=== PATIENT | female | born 1950 | race Caucasian/White ===

== ENCOUNTER 2017-10-31 16:39 | Emergency (ER) | payer BC ==
[~2017-10-31] VITALS: Ht 160 cm; Wt 77.1 kg
[~2017-10-31 16:39] MED LIST: AMIT25; ATOR10; BACL20 PO; BUPR150ER PO; Baclofen10 MG PO; Bupropion Xl150 MG PO; CHANTIX; CIPRSO LEFTEYE; COLCHICINE0.6 MG PO; CYCL10; CYCL10 PO; Carbidopa-Levo1 EACH PO; DIPH50 PO; Desyrel150 MG; ESTR.625; GABA100 PO; Gabapentin600 MG PO; HYDACE10B PO; HYDACE5; HYDACE5 PO; HYDMOR2 PO; HYDR1TAB94 PO; IBUHYD; INDO50 PO; KETO10; LEVCAR10 PO; LORA1 PO; MECL25 PO; MELA3 PO; NICO14TP TOP; Naprosyn500 MG PO; OMEP10ER PO; OMEP20ER PO; ONDA4 PO; ONDA4ODT MM; OXYACE5T; OXYACE5T PO; PANT40 PO; PRAM.5; PREG150; PREG150 PO; Prilosec Otc20 MG PO; RXONDA4ODT MM; RXPROM25 PO; SERT100 PO; SIMV10 PO; SIMV40 PO; Simvastatin20 MG PO; TRAZ100 PO; TRAZ50; TRAZ50 PO; Toviaz4 MG PO; Ultram50 MG PO; VITORIN; Valium5 MG PO; Zofran8 MG PO; [UNRECOGNIZED DRUG - OTHER]
[2017-10-31 18:22] LABS: BASOPHILS ABSOLUTE AUTO 0.04 K/mm3 (0.00-0.23); BASOPHILS PERCENT AUTO 1 % (0-2); EOSINOPHILS ABSOLUTE AUTO 0.11 K/mm3 (0.00-0.68); EOSINOPHILS PERCENT AUTO 2 % (0-6); Hematocrit 36.3 % (33.0-51.0); Hemoglobin 11.7 g/dL (11.5-16.0); IMMATURE GRAN ABSOLUTE AUTO 0.01 K/mm3 (0.00-0.10); IMMATURE GRAN PERCENT AUTO 0 % (0-1); LYMPHOCYTES ABSOLUTE AUTO 2.25 K/mm3 (0.84-5.20); LYMPHOCYTES PERCENT AUTO 31 % (21-46); MONOCYTES ABSOLUTE AUTO 0.54 K/mm3 (0.16-1.47); MONOCYTES PERCENT AUTO 7 % (4-13); Mean Corpuscular HGB 27.9 pg (26.0-34.0); Mean Corpuscular HGB Conc 32.2 g/dL (31.5-36.5); Mean Corpuscular Volume 86 fL (80-100); Mean Platelet Volume 10.6 fL (9.1-12.4); NEUTROPHILS PERCENT AUTO 59 % (41-73); Platelet Count 233 K/mm3 (150-400); RDW Coefficient Variation 13.1 % (11.7-14.2); RDW Standard Deviation 41.1 fL (35.1-46.3); White Blood Cell Count 7.25 K/mm3 (4.00-11.30)
[2017-10-31 18:41] LABS: Albumin, Blood 3.6 g/dL (3.4-5.0); Bilirubin, Total 0.3 mg/dL (0.1-1.0); Bun/Creatinine Ratio 23.5 (12.0-20.0); Calcium, Blood 8.9 mg/dL (8.5-10.1); Creatinine, Blood 1.02 mg/dL (0.40-1.00); Globulin, Blood 3.5 g/dL (2.2-4.0); Potassium, Blood 3.9 mmol/L (3.5-5.5); Total Protein, Blood 7.1 g/dL (6.4-8.2)
== END 2017-10-31 19:56 | disposition home or self-care (01) ==
LOC: ER 16:39
PROVIDERS: Emergency Medicine
DX: S39.011A Strain of muscle, fascia and tendon of abdomen, initial encounter (principal); X58.XXXA Exposure to other specified factors, initial encounter; Z88.8 Allergy status to other drugs, medicaments and biological substances; Z79.899 Other long term (current) drug therapy; K21.9 Gastro-esophageal reflux disease without esophagitis; Z87.891 Personal history of nicotine dependence
CPT/HCPCS: 36415; 80053; 81000; 83690; 85025; 99283

== ENCOUNTER → 2017-11-30 | Outpatient (CLI) | payer BC ==
[2017-11-30 16:11] LABS: Bun/Creatinine Ratio 14.2 (12.0-20.0); Creatinine, Blood 1.06 mg/dL (0.40-1.00); Potassium, Blood 3.8 mmol/L (3.5-5.5)
[2017-11-30 16:34] LABS: BASOPHILS ABSOLUTE AUTO 0.03 K/mm3 (0.00-0.23); BASOPHILS PERCENT AUTO 0 % (0-2); EOSINOPHILS ABSOLUTE AUTO 0.16 K/mm3 (0.00-0.68); EOSINOPHILS PERCENT AUTO 2 % (0-6); Hematocrit 38.5 % (33.0-51.0); Hemoglobin 12.6 g/dL (11.5-16.0); IMMATURE GRAN ABSOLUTE AUTO 0.02 K/mm3 (0.00-0.10); IMMATURE GRAN PERCENT AUTO 0 % (0-1); LYMPHOCYTES ABSOLUTE AUTO 1.75 K/mm3 (0.84-5.20); LYMPHOCYTES PERCENT AUTO 22 % (21-46); MONOCYTES ABSOLUTE AUTO 0.56 K/mm3 (0.16-1.47); MONOCYTES PERCENT AUTO 7 % (4-13); Mean Corpuscular HGB 28.3 pg (26.0-34.0); Mean Corpuscular HGB Conc 32.7 g/dL (31.5-36.5); Mean Corpuscular Volume 86 fL (80-100); Mean Platelet Volume 10.5 fL (9.1-12.4); NEUTROPHILS ABSOLUTE AUTO 5.31 K/mm3 (1.96-9.15); NEUTROPHILS PERCENT AUTO 68 % (41-73); Platelet Count 213 K/mm3 (150-400); RDW Standard Deviation 40.7 fL (35.1-46.3); Red Blood Cell Count 4.46 M/mm3 (3.80-5.20); White Blood Cell Count 7.83 K/mm3 (4.00-11.30)
== END ==
LOC: LAB EV 16:01 → LAB SHORT 16:01
PROVIDERS: Emergency Medicine
DX: R19.7 Diarrhea, unspecified (principal)
CPT/HCPCS: 80048; 85025

== ENCOUNTER 2018-06-11 19:41 | Emergency (ER) | payer BC ==
[~2018-06-11] VITALS: Ht 160 cm; Wt 69.0 kg
[2018-06-11 20:23] LABS: BASOPHILS ABSOLUTE AUTO 0.03 K/mm3 (0.00-0.23); BASOPHILS PERCENT AUTO 0 % (0-2); EOSINOPHILS PERCENT AUTO 1 % (0-6); Hematocrit 41.7 % (33.0-51.0); Hemoglobin 13.3 g/dL (11.5-16.0); IMMATURE GRAN ABSOLUTE AUTO 0.01 K/mm3 (0.00-0.10); IMMATURE GRAN PERCENT AUTO 0 % (0-1); LYMPHOCYTES ABSOLUTE AUTO 2.51 K/mm3 (0.84-5.20); LYMPHOCYTES PERCENT AUTO 36 % (21-46); MONOCYTES ABSOLUTE AUTO 0.49 K/mm3 (0.16-1.47); MONOCYTES PERCENT AUTO 7 % (4-13); Mean Corpuscular HGB Conc 31.9 g/dL (31.5-36.5); Mean Corpuscular Volume 88 fL (80-100); Mean Platelet Volume 10.5 fL (9.1-12.4); NEUTROPHILS ABSOLUTE AUTO 3.77 K/mm3 (1.96-9.15); NEUTROPHILS PERCENT AUTO 55 % (41-73); Platelet Count 278 K/mm3 (150-400); RDW Coefficient Variation 13.3 % (11.7-14.2); RDW Standard Deviation 43.1 fL (35.1-46.3); Red Blood Cell Count 4.75 M/mm3 (3.80-5.20); White Blood Cell Count 6.91 K/mm3 (4.00-11.30)
[2018-06-11 20:59] LABS: Albumin/Globulin Ratio 1.1 (0.8-1.8); Bilirubin, Total 0.4 mg/dL (0.1-1.0); Bun/Creatinine Ratio 15.1 (12.0-20.0); Calcium, Blood 8.9 mg/dL (8.5-10.1); Creatinine, Blood 1.06 mg/dL (0.40-1.00); Globulin, Blood 3.6 g/dL (2.2-4.0); Potassium, Blood 3.8 mmol/L (3.5-5.5); Total Protein, Blood 7.6 g/dL (6.4-8.2)
[2018-06-11] MEDS ORDERED: Neurontin 300300 MG PO (21:05)
[2018-06-11] MEDS ORDERED: HYDHCL25 PO (22:19)
== END 2018-06-11 23:09 | disposition home or self-care (01) ==
LOC: ER 19:41
PROVIDERS: Physician Assistant
DX: J02.9 Acute pharyngitis, unspecified (principal); F12.23 Cannabis dependence with withdrawal; Z87.891 Personal history of nicotine dependence
CPT/HCPCS: 36415; 80053; 85025; 96374; 99283-25; J1100; J1885

== ENCOUNTER 2018-06-17 09:01 | Emergency (ER) | payer BC ==
[~2018-06-17] VITALS: Ht 172.7 cm; Wt 81.7 kg
[~2018-06-17 09:01] MED LIST changes: +HYDHCL25 PO; +Neurontin 300300 MG PO
[2018-06-17] MEDS ORDERED: CARB150 (09:23)
[2018-06-17] MEDS ORDERED: TRAZ150T57 (09:23)
[2018-06-17] MEDS ORDERED: GABA600 PO (09:23)
[2018-06-17] MEDS ORDERED: BUSP15 PO (09:24)
[2018-06-17] MEDS ORDERED: MELO7.5 PO (09:24)
[2018-06-17 09:59] LABS: BASOPHILS ABSOLUTE AUTO 0.03 K/mm3 (0.00-0.23); BASOPHILS PERCENT AUTO 0 % (0-2); EOSINOPHILS ABSOLUTE AUTO 0.06 K/mm3 (0.00-0.68); EOSINOPHILS PERCENT AUTO 1 % (0-6); Hematocrit 41.8 % (33.0-51.0); Hemoglobin 13.2 g/dL (11.5-16.0); IMMATURE GRAN ABSOLUTE AUTO 0.04 K/mm3 (0.00-0.10); IMMATURE GRAN PERCENT AUTO 1 % (0-1); LYMPHOCYTES ABSOLUTE AUTO 1.86 K/mm3 (0.84-5.20); LYMPHOCYTES PERCENT AUTO 22 % (21-46); MONOCYTES ABSOLUTE AUTO 0.48 K/mm3 (0.16-1.47); MONOCYTES PERCENT AUTO 6 % (4-13); Mean Corpuscular HGB 28.5 pg (26.0-34.0); Mean Corpuscular HGB Conc 31.6 g/dL (31.5-36.5); Mean Corpuscular Volume 90 fL (80-100); Mean Platelet Volume 10.9 fL (9.1-12.4); NEUTROPHILS ABSOLUTE AUTO 6.05 K/mm3 (1.96-9.15); NEUTROPHILS PERCENT AUTO 71 % (41-73); Platelet Count 262 K/mm3 (150-400); RDW Coefficient Variation 13.2 % (11.7-14.2); RDW Standard Deviation 43.4 fL (35.1-46.3); Red Blood Cell Count 4.63 M/mm3 (3.80-5.20); White Blood Cell Count 8.52 K/mm3 (4.00-11.30)
[2018-06-17 10:27] LABS: Alanine Aminotransfer (ALT/SGP 12 U/L (12-78); Albumin, Blood 4.3 g/dL (3.4-5.0); Albumin/Globulin Ratio 1.2 (0.8-1.8); Alk Phos 112 U/L (50-136); Anion Gap 8 mmol/L (6-16); Aspartate Aminotrans (AST/SGOT 27 U/L (12-37); Bilirubin, Total 0.4 mg/dL (0.1-1.0); Blood Urea Nitrogen 21 mg/dL (8-24); Bun/Creatinine Ratio 25.4 (12.0-20.0); CO2, Blood 25 mmol/L (21-32); Calcium, Blood 9.4 mg/dL (8.5-10.1); Chloride, Blood 108 mmol/L (98-108); Creatinine, Blood 0.83 mg/dL (0.40-1.00); Globulin, Blood 3.5 g/dL (2.2-4.0); Glomerular Filtration Rate >60 (60-); Glucose, Blood 108 mg/dL (70-99); Potassium, Blood 4.2 mmol/L (3.5-5.5); Sodium, Blood 141 mmol/L (136-145); Total Protein, Blood 7.8 g/dL (6.4-8.2)
[2018-06-17 10:45] LABS: U Amphetamine Screen Not Detected; U Barbituate Screen Not Detected; U Benzodiazapine Screen Not Detected; U Buprenorphine Screen Not Detected; U Cannabinoids Screen Not Detected; U Cocaine Screen Not Detected; U Methadone Screen Not Detected; U Methamphetamine Screen Not Detected; U Opiates Screen Not Detected; U Oxycodone Screen Not Detected; U Phencyclidine Screen Not Detected; U Propoxyphene Screen Not Detected
== END 2018-06-17 12:20 | disposition home or self-care (01) ==
LOC: ER 09:01
PROVIDERS: Emergency Medicine; Physician Assistant
DX: T43.211A Poisoning by selective serotonin and norepinephrine reuptake inhibitors, accidental (unintentional), initial encounter (principal); R40.4 Transient alteration of awareness; Z88.8 Allergy status to other drugs, medicaments and biological substances; Z79.899 Other long term (current) drug therapy
CPT/HCPCS: 36415; 80053; 85025; 93005; 93010; 96374; 96375; 99284-25; G0480; J1200; J2060

== ENCOUNTER → 2018-11-22 | Outpatient (CLI) | payer BC ==
[~2018-11-22] MED LIST changes: +BUSP15 PO; +CARB150; +GABA600 PO; +MELO7.5 PO; +OMEPRAZOLE20 MG PO; +TRAZ150T57; +VARE1 PO
== END | disposition home or self-care (01) ==
LOC: LAB SHORT 08:45 → LAB 08:45
DX: R30.0 Dysuria (principal)
CPT/HCPCS: 87086

== ENCOUNTER 2018-11-25 08:54 | Day surgery (SDC) | payer BC ==
[~2018-11-25] VITALS: Ht 160 cm; Wt 70.1 kg
[~2018-11-25 08:54] MED LIST changes: -OMEPRAZOLE20 MG PO; -VARE1 PO
[2018-11-25] MEDS ORDERED: VARE1 PO (09:32)
== END 2018-11-25 10:32 | disposition home or self-care (01) ==
LOC: ORSCSDS 08:54
PROVIDERS: Anesthesiology
PROC: 3E0R33Z Introduction of Anti-inflammatory into Spinal Canal, Percutaneous Approach (ICD-10-PCS; principal; 2018-11-25 10:15)
DX: M96.1 Postlaminectomy syndrome, not elsewhere classified (principal); M54.16 Radiculopathy, lumbar region; E78.00 Pure hypercholesterolemia, unspecified; K21.9 Gastro-esophageal reflux disease without esophagitis; Z87.891 Personal history of nicotine dependence; F41.8 Other specified anxiety disorders; Z79.899 Other long term (current) drug therapy
CPT/HCPCS: J1040

== ENCOUNTER 2019-02-04 13:36 | Day surgery (SDC) | payer BC ==
[~2019-02-04 13:36] MED LIST changes: +VARE1 PO
[2019-02-04] MEDS ORDERED: OMEPRAZOLE20 MG PO (14:28)
== END 2019-02-04 15:07 | disposition home or self-care (01) ==
LOC: ORSCSDS 13:36
PROVIDERS: Anesthesiology
PROC: 3E0R33Z Introduction of Anti-inflammatory into Spinal Canal, Percutaneous Approach (ICD-10-PCS; principal; 2019-02-04 15:00)
DX: M54.16 Radiculopathy, lumbar region (principal); M96.1 Postlaminectomy syndrome, not elsewhere classified; E78.00 Pure hypercholesterolemia, unspecified; K21.9 Gastro-esophageal reflux disease without esophagitis; G20 Parkinson's disease; F41.8 Other specified anxiety disorders; Z79.899 Other long term (current) drug therapy
CPT/HCPCS: J1040

== ENCOUNTER 2019-05-21 08:37 | Day surgery (SDC) | payer BC ==
[~2019-05-21] VITALS: Ht 157.5 cm; Wt 70.3 kg
[~2019-05-21 08:37] MED LIST changes: +OMEPRAZOLE20 MG PO
== END 2019-05-21 10:17 | disposition home or self-care (01) ==
LOC: ORSCSDS 08:37
PROVIDERS: Anesthesiology
PROC: 3E0R33Z Introduction of Anti-inflammatory into Spinal Canal, Percutaneous Approach (ICD-10-PCS; principal; 2019-05-21 09:45)
DX: M96.1 Postlaminectomy syndrome, not elsewhere classified (principal); M54.16 Radiculopathy, lumbar region; K21.9 Gastro-esophageal reflux disease without esophagitis; E78.00 Pure hypercholesterolemia, unspecified; G20 Parkinson's disease; F41.8 Other specified anxiety disorders; F17.210 Nicotine dependence, cigarettes, uncomplicated; Z79.899 Other long term (current) drug therapy
CPT/HCPCS: J1040

== ENCOUNTER 2019-11-07 07:02 | Emergency (ER) | payer BC ==
[~2019-11-07] VITALS: Ht 157.5 cm; Wt 70.3 kg
[2019-11-07] MEDS ORDERED: OXYC10ER PO (07:57)
[2019-12-19] MEDS ORDERED: Baclofen20 MG PO (06:13)
[2019-12-19] MEDS ORDERED: REMERON30 MG PO (06:14)
[2019-12-19] MEDS ORDERED: CELEBREX200 MG PO (06:14)
== END 2019-11-07 08:15 | disposition home or self-care (01) ==
LOC: ER 07:02
DX: S93.402A Sprain of unspecified ligament of left ankle, initial encounter (principal); Z88.7 Allergy status to serum and vaccine; Z88.8 Allergy status to other drugs, medicaments and biological substances; Z79.899 Other long term (current) drug therapy; W19.XXXA Unspecified fall, initial encounter
CPT/HCPCS: 73610; 99283-25

== ENCOUNTER → 2019-11-27 | Outpatient (CLI) | payer BC ==
[~2019-11-27] MED LIST changes: +Baclofen20 MG PO; +CELEBREX200 MG PO; +OXYC10ER PO; +REMERON30 MG PO
[2019-11-27 14:28] LABS: Candida species (DNA Probe) Negative (NEGATIVE); G. vaginalis (DNA Probe) Positive (NEGATIVE); T. vaginalis (DNA Probe) Negative (NEGATIVE)
== END | disposition home or self-care (01) ==
LOC: LAB 09:37 → LAB SHORT 09:37
PROVIDERS: Nurse Practitioner
DX: N89.8 Other specified noninflammatory disorders of vagina (principal); R30.0 Dysuria
CPT/HCPCS: 87086; 87480; 87510; 87660

== ENCOUNTER 2020-07-05 13:59 | Emergency (ER) | payer BC ==
[~2020-07-05] VITALS: Ht 160 cm; Wt 59.0 kg
[2020-07-05 14:40] LABS: BASOPHILS ABSOLUTE AUTO 0.04 K/mm3 (0.00-0.23); BASOPHILS PERCENT AUTO 1 % (0-2); EOSINOPHILS ABSOLUTE AUTO 0.13 K/mm3 (0.00-0.68); EOSINOPHILS PERCENT AUTO 2 % (0-6); Hematocrit 44.9 % (33.0-51.0); Hemoglobin 14.4 g/dL (11.5-16.0); IMMATURE GRAN ABSOLUTE AUTO 0.01 K/mm3 (0.00-0.10); IMMATURE GRAN PERCENT AUTO 0 % (0-1); LYMPHOCYTES ABSOLUTE AUTO 2.22 K/mm3 (0.84-5.20); LYMPHOCYTES PERCENT AUTO 30 % (21-46); MONOCYTES ABSOLUTE AUTO 0.53 K/mm3 (0.16-1.47); MONOCYTES PERCENT AUTO 7 % (4-13); Mean Corpuscular HGB 27.5 pg (26.0-34.0); Mean Corpuscular HGB Conc 32.1 g/dL (31.5-36.5); Mean Corpuscular Volume 86 fL (80-100); Mean Platelet Volume 10.9 fL (9.1-12.4); NEUTROPHILS ABSOLUTE AUTO 4.45 K/mm3 (1.96-9.15); NEUTROPHILS PERCENT AUTO 60 % (41-73); Platelet Count 267 K/mm3 (150-400); RDW Coefficient Variation 13.6 % (11.7-14.2); Red Blood Cell Count 5.23 M/mm3 (3.80-5.20); White Blood Cell Count 7.38 K/mm3 (4.00-11.30)
[2020-07-05 15:07] LABS: Alanine Aminotransfer (ALT/SGP 20 U/L (12-78); Albumin, Blood 3.8 g/dL (3.4-5.0); Alk Phos 102 U/L (50-136); Anion Gap 7 mmol/L (6-16); Aspartate Aminotrans (AST/SGOT 12 U/L (12-37); Bilirubin, Total 0.4 mg/dL (0.1-1.0); Blood Urea Nitrogen 19 mg/dL (8-24); Bun/Creatinine Ratio 16.4 (12.0-20.0); CO2, Blood 25 mmol/L (21-32); Chloride, Blood 109 mmol/L (98-108); Creatinine, Blood 1.16 mg/dL (0.40-1.00); Globulin, Blood 3.9 g/dL (2.2-4.0); Glomerular Filtration Rate 49 (60-); Glucose, Blood 119 mg/dL (70-99); Potassium, Blood 4.5 mmol/L (3.5-5.5); Sodium, Blood 141 mmol/L (136-145); Total Protein, Blood 7.7 g/dL (6.4-8.2); Troponin I <0.015 ng/mL (0.000-0.040)
== END 2020-07-05 16:10 | disposition left against medical advice (07) ==
LOC: ER 13:59
PROVIDERS: Physician Assistant
DX: R07.9 Chest pain, unspecified (principal); R06.02 Shortness of breath; R05 Cough; Z53.21 Procedure and treatment not carried out due to patient leaving prior to being seen by health care provider
CPT/HCPCS: 36415; 71046; 80053; 84484; 85025; 86140; 93005; 93010; 99283-25

== ENCOUNTER 2021-09-22 08:04 | Day surgery (SDC) | payer BC ==
[~2021-09-22] VITALS: Ht 160 cm; Wt 82.1 kg
== END 2021-09-22 09:40 | disposition home or self-care (01) ==
LOC: ORSCSDS 08:04
PROVIDERS: Anesthesiology
PROC: 3E0R33Z Introduction of Anti-inflammatory into Spinal Canal, Percutaneous Approach (ICD-10-PCS; principal; 2021-09-22 09:15)
DX: M96.1 Postlaminectomy syndrome, not elsewhere classified (principal); J44.9 Chronic obstructive pulmonary disease, unspecified; I10 Essential (primary) hypertension; F32.A Depression, unspecified; J45.909 Unspecified asthma, uncomplicated; K21.9 Gastro-esophageal reflux disease without esophagitis; E66.9 Obesity, unspecified; Z68.32 Body mass index [BMI] 32.0-32.9, adult; F17.210 Nicotine dependence, cigarettes, uncomplicated; Z79.899 Other long term (current) drug therapy
CPT/HCPCS: J1040

== ENCOUNTER 2022-04-09 13:22 | Day surgery (SDC) | payer BC ==
[~2022-04-09] VITALS: Ht 157.5 cm; Wt 87.0 kg
[2022-04-09] MEDS ORDERED: BUDESONIDE1 MG/2 M1 (13:39)
== END 2022-04-09 14:03 | disposition home or self-care (01) ==
LOC: ORSCSDS 13:22
PROVIDERS: Anesthesiology
PROC: 3E0R33Z Introduction of Anti-inflammatory into Spinal Canal, Percutaneous Approach (ICD-10-PCS; principal; 2022-04-09 14:30)
DX: M96.1 Postlaminectomy syndrome, not elsewhere classified (principal); I10 Essential (primary) hypertension; E78.00 Pure hypercholesterolemia, unspecified; K21.9 Gastro-esophageal reflux disease without esophagitis; F32.A Depression, unspecified; Z79.51 Long term (current) use of inhaled steroids; Z79.899 Other long term (current) drug therapy
CPT/HCPCS: J1040

== ENCOUNTER 2022-12-16 08:46 | Emergency (ER) | payer BC ==
[~2022-12-16] VITALS: Ht 160 cm; Wt 88.5 kg
[~2022-12-16 08:46] MED LIST changes: +ASPI81CH PO; +ATOR40TA PO; +BUDESONIDE1 MG/2 M1; +CLOP75 PO; +DOXE150 PO; +LEVSOD25 PO; +LIDO700A20 TOP; +PRAM.5 PO; -TRAZ150T57; +TRAZ150T57 PO
[2022-12-16 09:10] VITALS: BP 137/74
[2022-12-16] MEDS ORDERED: Voltaren100 GM TOP (10:16)
== END 2022-12-16 10:26 | disposition home or self-care (01) ==
LOC: ER 08:46
DX: S80.02XA Contusion of left knee, initial encounter (principal); K21.9 Gastro-esophageal reflux disease without esophagitis; G20 Parkinson's disease; J44.9 Chronic obstructive pulmonary disease, unspecified; I10 Essential (primary) hypertension; F17.200 Nicotine dependence, unspecified, uncomplicated; Z88.8 Allergy status to other drugs, medicaments and biological substances; Z79.899 Other long term (current) drug therapy; Z79.82 Long term (current) use of aspirin; W18.30XA Fall on same level, unspecified, initial encounter
CPT/HCPCS: 73562-LT; 99283-25

== ENCOUNTER 2023-05-29 13:12 | Inpatient (IN) | payer MEDICARE, BC ==
[~2023-05-29] VITALS: Ht 157.5 cm; Wt 92.9 kg
[2023-05-29] VITALS (38 sets, daily range): BP systolic 68–149; BP diastolic 49–134
[~2023-05-29 13:12] MED LIST changes: +ALBU90OI INH; +BUME2 PO; +CEPH500 PO; +Doxycycline Mo100 M1 PO; +ESCI10 PO; +FLUTICASONE-SA1 EAC2 INH; +Flexeril10 MG PO; +GABA300 PO; +LEVOFLOXACIN250 MG PO; +MIRAPEX0.25 M2 PO; +POTCHL20ER PO; +VALA500 PO; +Voltaren100 GM TOP
[2023-05-29] MEDS ORDERED: Lactated Ringer's 1,000 ML IV SCH (13:35)
[2023-05-29] MEDS ORDERED: CeFAZolin Sodium 2,000 MG in NS 50 ML IV SCH (13:35)
[2023-05-29] MEDS ORDERED: Chlorhexidine Mouth Care 15 ML UDC MT SCH (13:35)
[2023-05-29] MEDS ORDERED: OxyCODONE HCL 10 MG TABCR PO SCH (13:35)
[2023-05-29] MEDS ORDERED: Acetaminophen 500 MG Tab PO SCH (13:35)
[2023-05-29] MEDS ORDERED: Vancomycin HCL 1,000 MG in NS 100 ML IV SCH (13:35)
[2023-05-29] MEDS ORDERED: Rocuronium Bromide 10 MG/ML 5ML Injection IV ONE (15:16)
[2023-05-29] MEDS ORDERED: Ondansetron 4 MG TAB PO PRN (15:50)
[2023-05-29] MEDS ORDERED: Ondansetron HCl 2 MG / ML 2ML Vial IV PRN (15:50)
[2023-05-29] MEDS ORDERED: Naloxone HCl 0.4MG / ML 1ML Vial IV PRN ×2 (15:50→20:25)
[2023-05-29] MEDS ORDERED: Metoclopramide HCl 10 MG Tab PO PRN (15:55)
[2023-05-29] MEDS ORDERED: FLU VACC QS2023-24(6MOS UP)/PF 60 MCG/0.5 ML SYRINGE IM SCH (15:55)
[2023-05-29] MEDS ORDERED: Magnesium Hydroxide Conc 10 ML UDC PO PRN (15:55)
[2023-05-29] MEDS ORDERED: HYDROmorphone HCl/Pf 1MG SYR IV PRN (15:55)
[2023-05-29] MEDS ORDERED: OxyCODONE HCL 5 MG TAB PO PRN (15:55)
[2023-05-29] MEDS ORDERED: Bisacodyl 10 MG Supp PR PRN (16:00)
[2023-05-29] MEDS ORDERED: Acetaminophen 325 MG TABLET PO PRN (16:00)
[2023-05-29] MEDS ORDERED: Bupivacaine 0.5% HCl 5 MG/ML 30MLVIAL ONE (16:01)
[2023-05-29] MEDS ORDERED: Bumetanide 1 MG Tab PO PRN (16:05)
[2023-05-29] MEDS ORDERED: Ketorolac Tromethamine 15mg Vial IV PRN (16:10)
[2023-05-29] MEDS ORDERED: Cyclobenzaprine HCl 10 MG Tab PO PRN (16:10)
[2023-05-29] MEDS ORDERED: Ipratropium/Albuterol SulF 2.5-0.5MG/3 ML Amp INH ONE (16:15)
[2023-05-29] MEDS ORDERED: Mometasone/Formoterol MDI 200/5 mcg 13 GM INH SCH (16:20)
[2023-05-29] MEDS ORDERED: propofoL 20 ML IV ONE (16:20)
[2023-05-29] MEDS ORDERED: Albuterol HFA200 ACT/6.7 GM INH INH PRN (16:20)
[2023-05-29] MEDS ORDERED: FentaNYL Citrate 50 MCG/ML 2 ML Injection ONE (16:20)
[2023-05-29] MEDS ORDERED: Midazolam HCl 1MG / ML 2ML Vial ONE (16:20)
[2023-05-29] MEDS ORDERED: Omeprazole 20 MG CapCR PO SCH (16:30)
--- NOTE | 2023-05-29 16:31 | NUR ---
PRE-OP NOTE PT A&OX4, BREATHING RA, PAIN TO R HAND. PT USES WALKER AND HAS AN UNSTEADY GAIT AT BASELINE. GLASSES SENT TO PACU FOR POST OP. Patient confirms NPO status and agrees with scheduled surgery. Pre-Op teaching done. Pt verbalizes understanding.PT BELONGINGS STOWED BENEATH STRETCHER.
[2023-05-29] MEDS ORDERED: Potassium Chloride 20 MEQ TabCR PO SCH (17:00)
[2023-05-29] MEDS ORDERED: NS KCl 20mEq 1,000 ML IV SCH (17:00)
[2023-05-29] MEDS ORDERED: Metoclopramide HCl 5MG / ML 2ML Vial ONE (17:20)
--- NOTE | 2023-05-29 17:35 | NUR ---
PT HAS RLS AND IS MOVING ALL OVER THE PLACE C/O LEG PAIN BUT DENIES RT HAND PAIN, PT FALLS ASLEEP ON AND OFF AND WHEN PT IS SLEEP PT SATS DROP T0 82% ON 3L O2 NC NON REBREATHER ON AT 15L O2 SATS AT 95% BP STABLE
[2023-05-29] MEDS ORDERED: Piperacillin/Tazobactam Sod 3.375 GM in NS 50 ML IV SCH (18:00)
[2023-05-29] MEDS ORDERED: HYDROmorphone HCl/Pf 1MG SYR ONE (18:04)
[2023-05-29] MEDS ORDERED: Naloxone HCl 0.4MG / ML 1ML Vial ONE ×2 (19:13→20:04)
--- NOTE | 2023-05-29 19:49 | NUR ---
PT ARRIVED TO ROOM 224 FROM PACU. SATS 73% ON 4LO2. DURING BEDSIDE REP PT LETHARGIC, SLOW TO RESPOND W/STERNAL RUB. 13L NRB PLACED, 0.4MG NARCAN GIVEN, NO SIG IMPROVMENT NOTED. RT AND DYNAMIC BALANCER SET UP WORKER NOTIFIED, PT TX TO ICU 6 W/ICU DIGITAL MANAGER ASSIST. DR KELLOGG NOTIFIED, HOSPITALIST CONSULT OBTAINED. DAUGHTER NOTFIED, STATES SHE WILL UPDATE PT'S .
[2023-05-29] MEDS ORDERED: Naloxone HCl 0.4MG / ML 1ML Vial IV ONE (20:05)
--- NOTE | 2023-05-29 20:07 | NUR ---
PACU REPORT/HYPOXIA: REPORT RECEIVED FROM DANNA LIBRARIAN. PT TO UNIT AT ABOUT 1915. UPON ASSESSMENT PT IS SLEEPING, AND HARD TO WAKE. VS TAKEN AND SPO2 WAS 74% ON 4L. PT HOB RAISED AND PT PUT ON 13L NON-REBREATHER MASK. RT CALLED AND IN ROOM, ENROLLMENT PROCESSOR SHANTANU ALSO CALLED TO ROOM. PT RR 14 AND PT STILL HARD TO AROSE EVEN WITH STERNAL RUBBING, SPO2 INCREASED TO 96%. RADHA FOURNIER GAVE NARCAN. PT STILL LETHARGIC AFTER GIVEN NARCAN. RADHA SETHI AREA RELIEF PILOT NOTIFIED AND PT MOVED TO ROOM ICU6. THIS RN GAVE PRIMARY CARE PROVIDER BEDSIDE REPORT .PT NOTIFIED OF TRANSFER.
[2023-05-29] MEDS ORDERED: TraMADol HCl 50 MG Tab PO PRN (20:20)
--- NOTE | 2023-05-29 20:27 | NUR ---
INITIAL NOTE Report received at bedside for patient oversedated, received 1 dose narcan prior to arrival, arrived forgetful, obtunded slightly, sleepy, on NRB at 13L. Attempted to change to NC at 6L, desat, placed back on NRB. Continues to awaken to stimuli and able to be oriented x 4, but very drowsy and again sleep. Very restless legs also bothering when awake, but due to neuro status, holding all pain medications until able to sustain alertness/orientation. Spoke with surgeon earlier, plan discussed. Medications started, assessment performed, dressing to right arm c/d/i with good circulation distal/proximal to dressing. Call light in reach, requiring frequent reorientation.
[2023-05-29] MEDS ORDERED: Pramipexole DI-HCL 0.25 MG Tab PO SCH (21:00)
[2023-05-29] MEDS ORDERED: ValACYClovir HCL 500 MG Tab PO PRN (21:00)
[2023-05-29] MEDS ORDERED: Gabapentin 300 MG Cap PO SCH (21:00)
[2023-05-29] MEDS ORDERED: TraZODone HCl 100 MG Tab PO SCH (21:00)
[2023-05-29] MEDS ORDERED: Docusate Sodium 100 MG Cap PO SCH (21:00)
[2023-05-29] MEDS ORDERED: Naloxone HCl 1MG / ML 2ML SYR IV ONE (21:00)
[2023-05-29] MEDS ORDERED: Doxepin HCL 25 MG CAP PO SCH (21:00)
[2023-05-29] MEDS ORDERED: Doxepin HCL 50 MG CAP PO SCH (21:00)
[2023-05-29 21:18] LABS: BASOPHILS ABSOLUTE AUTO 0.02 K/mm3 (0.00-0.23); BASOPHILS PERCENT AUTO 0 % (0-2); EOSINOPHILS ABSOLUTE AUTO 0.03 K/mm3 (0.00-0.68); EOSINOPHILS PERCENT AUTO 0 % (0-6); Hematocrit 38.4 % (33.0-51.0); Hemoglobin 11.7 g/dL (11.5-16.0); IMMATURE GRAN ABSOLUTE AUTO 0.03 K/mm3 (0.00-0.10); IMMATURE GRAN PERCENT AUTO 0 % (0-1); LYMPHOCYTES ABSOLUTE AUTO 0.74 K/mm3 (0.84-5.20); LYMPHOCYTES PERCENT AUTO 7 % (21-46); MONOCYTES ABSOLUTE AUTO 0.19 K/mm3 (0.16-1.47); MONOCYTES PERCENT AUTO 2 % (4-13); Mean Corpuscular HGB 25.8 pg (26.0-34.0); Mean Corpuscular HGB Conc 30.5 g/dL (31.5-36.5); Mean Corpuscular Volume 85 fL (80-100); Mean Platelet Volume 11.2 fL (9.1-12.4); NEUTROPHILS ABSOLUTE AUTO 9.92 K/mm3 (1.96-9.15); NEUTROPHILS PERCENT AUTO 91 % (41-73); Platelet Count 223 K/mm3 (150-400); RDW Coefficient Variation 16.3 % (11.7-14.2); RDW Standard Deviation 50.6 fL (35.1-46.3); Red Blood Cell Count 4.54 M/mm3 (3.80-5.20); White Blood Cell Count 10.93 K/mm3 (4.00-11.30)
[2023-05-29 21:27] LABS: Base Excess Venous 3.4 mmol/L; pH Blood Venous 7.28 (7.34-7.37)
[2023-05-29 21:37] LABS: Albumin, Blood 2.8 g/dL (3.4-5.0); Albumin/Globulin Ratio 0.7 (0.8-1.8); Bilirubin, Total 0.2 mg/dL (0.1-1.0); Bun/Creatinine Ratio 25.8 (12.0-20.0); Calcium, Blood 8.4 mg/dL (8.5-10.1); Creatinine, Blood 1.32 mg/dL (0.40-1.00); Globulin, Blood 3.8 g/dL (2.2-4.0); Potassium, Blood 4.3 mmol/L (3.5-5.5); Total Protein, Blood 6.6 g/dL (6.4-8.2)
[2023-05-30] VITALS (33 sets, daily range): BP systolic 82–179; BP diastolic 56–101
[2023-05-30] MEDS ORDERED: CeFAZolin Sodium 2,000 MG in NS 50 ML IV SCH
[2023-05-30] MEDS ORDERED: Azithromycin 500 MG in NS 250 ML IV SCH
[2023-05-30 00:28] LABS: Influenza A, PCR NEGATIVE (NEGATIVE); Influenza B, PCR NEGATIVE (NEGATIVE); Resp Syncytial Virus, PCR NEGATIVE (NEGATIVE); SARS-Cov-2 (COVID-19) PCR, MMC NEGATIVE (NEGATIVE)
[2023-05-30 02:41] LABS: Base Excess Venous 4.5 mmol/L; Bicarbonate Venous 26.8 mmol/L (24.0-30.0); PCO2 Venous 65.1 mmHg (38-42); pH Blood Venous 7.29 (7.34-7.37)
[2023-05-30 02:45] LABS: BASOPHILS ABSOLUTE AUTO 0.01 K/mm3 (0.00-0.23); BASOPHILS PERCENT AUTO 0 % (0-2); EOSINOPHILS PERCENT AUTO 0 % (0-6); Hematocrit 39.6 % (33.0-51.0); Hemoglobin 12.1 g/dL (11.5-16.0); IMMATURE GRAN ABSOLUTE AUTO 0.02 K/mm3 (0.00-0.10); IMMATURE GRAN PERCENT AUTO 0 % (0-1); LYMPHOCYTES ABSOLUTE AUTO 0.63 K/mm3 (0.84-5.20); LYMPHOCYTES PERCENT AUTO 7 % (21-46); MONOCYTES ABSOLUTE AUTO 0.06 K/mm3 (0.16-1.47); MONOCYTES PERCENT AUTO 1 % (4-13); Mean Corpuscular HGB 25.9 pg (26.0-34.0); Mean Corpuscular HGB Conc 30.6 g/dL (31.5-36.5); Mean Corpuscular Volume 85 fL (80-100); Mean Platelet Volume 10.9 fL (9.1-12.4); NEUTROPHILS ABSOLUTE AUTO 8.47 K/mm3 (1.96-9.15); NEUTROPHILS PERCENT AUTO 92 % (41-73); Platelet Count 208 K/mm3 (150-400); RDW Coefficient Variation 16.3 % (11.7-14.2); RDW Standard Deviation 50.3 fL (35.1-46.3); Red Blood Cell Count 4.67 M/mm3 (3.80-5.20); White Blood Cell Count 9.19 K/mm3 (4.00-11.30)
[2023-05-30 03:00] LABS: Anion Gap Unable to Calculate mmol/L (6-16); Blood Urea Nitrogen 31 mg/dL (8-24); Bun/Creatinine Ratio 24.6 (12.0-20.0); CO2, Blood 32 mmol/L (21-32); Calcium, Blood 8.4 mg/dL (8.5-10.1); Chloride, Blood 110 mmol/L (98-108); Creatinine, Blood 1.26 mg/dL (0.40-1.00); Glomerular Filtration Rate 46 (60-); Glucose, Blood 168 mg/dL (70-99); Potassium, Blood 4.9 mmol/L (3.5-5.5); Sodium, Blood 141 mmol/L (136-145)
[2023-05-30 04:44] LABS: Base Excess Venous 5.5 mmol/L; PCO2 Venous 62.7 mmHg (38-42); pH Blood Venous 7.31 (7.34-7.37)
[2023-05-30] MEDS ORDERED: FentaNYL Citrate 50 MCG/ML 2 ML Injection IV PRN (05:40)
[2023-05-30] MEDS ORDERED: Levothyroxine Sodium 0.025 MG Tab PO SCH (06:00)
--- NOTE | 2023-05-30 06:19 | NUR ---
SHIFT SUMMARY Patient placed from NC back to NRB during shift and eventually to BiPAP, now on AVAPS. Tracked VBG earlier, recent pH 7.31, 62.7 CO2, 27 Bicarb. Remains intermittently forgetful about event, but knows she is in ICU and understands what happened, still not completely understanding reason for being in ICU, needing reminders. VS stable on monitor except some pauses overnight, longest was 1.4 seconds. BP mildly elevated, monitoring. Denied pain later, restless leg appeared to subside. Due to frequent drowsiness, held all PO meds and kept NPO on shift. Able to use bedpan to void. Uses call light appropriately. Nasal trumpet inserted earlier to assist gas exchange due to obstructive pattern (see also RT notes/VBGs).
--- NOTE | 2023-05-30 07:15 | NUR ---
Assumed care of pt at 0700. Bedside report received from Kieran RN and Karrie RN. Pt A&O x 4. Answers questions, follows commands. Pt anxious, talkative. Educated that speech is difficult to understand with BiPAP mask and oxygenation support is important at this time. Pt continues to speak against mask, stating that she would like something to eat and drink. Currently on BiPAP with AVAPS vT 500, EPAP 14, Rate 18, FiO2 30%. [place] type respiratory pattern with tidal volumes ranging from 100 mL to 600+ mL.
[2023-05-30] MEDS ORDERED: Albuterol 2.5 MG/3 ML VIAL INH SCH (08:10)
[2023-05-30] MEDS ORDERED: Albuterol 2.5 MG/3 ML VIAL INH PRN (08:10)
--- NOTE | 2023-05-30 08:17 | NUR ---
Anatoliy Jade and Magdiel in to see patient. Dr Jade removed surgical dressing, cleansed site and redressed while providing wound care instructions. Dr Veloz gave permission for pt to be removed from BiPAP and placed on NC. He would like pt to receive breathing treatment and have incentive spirometry. Placed on 2 LPM NC. SpO2 98%.
[2023-05-30] MEDS ORDERED: Gabapentin 300 MG Cap PO SCH ×2 (09:00→21:00)
[2023-05-30] MEDS ORDERED: Atorvastatin 40 MG Tab PO SCH (09:00)
[2023-05-30] MEDS ORDERED: Citalopram Hydrobromide 20 MG Tab PO SCH (09:00)
[2023-05-30] MEDS ORDERED: Vancomycin HCL 1,500 MG in NS 250 ML IV SCH (09:00)
[2023-05-30] MEDS ORDERED: Ipratropium/Albuterol SulF 2.5-0.5MG/3 ML Amp INH SCH (11:40)
[2023-05-30 13:53] LABS: Base Excess Venous 3.7 mmol/L; Bicarbonate Venous 27.8 mmol/L (24.0-30.0); PCO2 Venous 34.6 mmHg (38-42)
--- NOTE | 2023-05-30 15:37 | NUR ---
Dr Veloz in to see patient. Provider states pt is acceptable for surgical floor status without tele. Pt has been eating/drinking. Mobilizing around room with assistance. Using personal cell phone to update family. Assigned to room 208. Telephone report given to Nikkie GARCIA. Pt transferred via wheelchair with chart/belongings/meds, accompanied by her daughter and JIA Shields.
[2023-05-30] MEDS ORDERED: Piperacillin/Tazobactam Sod 3.375 GM in NS 50 ML IV SCH (16:00)
[2023-05-30] MEDS ORDERED: Enoxaparin 40 MG/0.4 ML SYR SC SCH (16:00)
--- NOTE | 2023-05-30 16:21 | NUR ---
PT ARRIVED TO UNIT AT APROX 1540 FROM ICU. PT SBA TO BED. PT DENIES PAIN AT TIME OF ARRIVAL. IV TO RAC DOES NOT FLUSH SO REMOVED. DRESSING TO R HAND CHANGED BY DR VILLASENOR THIS SHIFT, C/D/I. TO BE CHANGED DAILY, SEE WOUND CARE ORDERS. CONTINUE IV ABX, SALINE LOCKED BETWEEN IV ABX.
[2023-05-30] MEDS ORDERED: Calcium Carbonate 500 MG Tab Chew PO PRN (20:10)
[2023-05-30] MEDS ORDERED: Cyclobenzaprine HCl 10 MG Tab PO SCH (21:00)
[2023-05-30] MEDS ORDERED: TraZODone HCl 50 MG Tab PO SCH (21:00)
[2023-05-30] MEDS ORDERED: Pramipexole DI-HCL 0.25 MG Tab PO SCH (21:55)
--- NOTE | 2023-05-30 23:24 | NUR ---
NURSE DOCUMENTATION THIS RN WAS CALLED TO THE PT'S ROOM BY BIJAL FULTON AFTER THE CALL LIGHT WAS ACTIVATED BY THE PT'S SPOUSE, DORIAN, AT APPROX 2245. THIS RN FOUND THE PT ON THE FLOOR, APPARENTLY ATTEMPTING TO WALK TO THE BATHROOM ON HIS OWN POWER, WITHOUT ASSISTANCE OF STAFF OR THE WALKER HE HAS BEEN USING WHEN GETTING UP TO USE THE BATHROOM. THIS RN CALLED MOI GROVES INTO THE ROOM FROM THE HALLWAY AND WE ASSESSED THE PT WITH BIJAL'Gina FULTON AND DANITZA IN THE ROOM WELL. VITAL SIGNS WERE NORMAL ASIDE FROM THE PT'S BLOOD PRESSURE BEING ELEVATED. THE PT DID SUFFER A SKIN TEAR ON HIS RIGHT ELBOW AND THIS WAS COVERED WITH A MEPILEX ONCE THE PT WAS PLACED BACK INTO HIS BED BY STAFF. PT'S VITAL SIGNS HAVE BEEN STABLE SINCE THE FALL WITH THE PT'S BP COMING DOWN TIME EXTENDS PAST THE INCIDENT. PT AND PT'S SPOUSE EDUCATED ABOUT THE PT NOT GETTING UP FOR THE REMAINDER OF THE SHIFT D/T GENERALIZED WEAKNESS. ESTEPHANIA FISHMAN NOTIFIED AT 2310 ABOUT PT'S CONDITION POST FALL. PT STATED HIS ELBOW AND COCCYX WERE PAINFUL, BUT NO OTHER AREAS WERE SORE. PT ABLE TO MOVE ALL EXTREMITIES WITHOUT DIFFICULTY. NO IMAGING ORDERED AT THIS TIME. IF PT DOES COMPLAIN OF ANY PAIN, WILL CONSULT PROVIDER TO ORDER IMAGING ON AN NEEDED BASIS. PT COMPLAINS OF ANY NEW PAIN
[2023-05-31] MEDS ORDERED: NS 250 ML IV PRN (00:10)
[2023-05-31 03:16] VITALS: BP 147/73
--- NOTE | 2023-05-31 05:56 | NUR ---
SHIFT SUMMARY PT IS POD#2 S/P I&D OF HER RIGHT HAND INDEX FINGER. PT REQUESTED HER NIGHT TIME MEDS AND THIS RN CONTACTED THE PROVIDER TO GET THEM ORDERED. PT WAS ABLE TO AMBULATE TO THE BATHROOM SEVERAL TIMES THIS SHIFT WITHOUT INCIDENT. PT'S PAIN MEDICATED PER EMAR. VITAL SIGNS HAVE BEEN STABLE WITH NO ACUTE EVENTS OCCURRING OVERNIGHT. BED IS IN LOWEST POSITION, CALL LIGHT IS WITHIN REACH.
[2023-05-31] MEDS ORDERED: Omeprazole 20 MG CapCR PO SCH (06:30)
[2023-05-31 06:31] LABS: Albumin, Blood 2.6 g/dL (3.4-5.0); Albumin/Globulin Ratio 0.8 (0.8-1.8); Bilirubin, Total 0.2 mg/dL (0.1-1.0); Calcium, Blood 8.7 mg/dL (8.5-10.1); Creatinine, Blood 1.28 mg/dL (0.40-1.00); Globulin, Blood 3.4 g/dL (2.2-4.0)
[2023-05-31 07:06] VITALS: BP 149/85
[2023-05-31] MEDS ORDERED: Lactobacil 2-S.Thermo-Bifido 1 1 Cap PO SCH (09:00)
[2023-05-31] MEDS ORDERED: Polyethylene Glycol 3350 17 gm PO SCH (09:00)
[2023-05-31] MEDS ORDERED: Amoxicillin/Clavulanate K 875 MG Tab PO SCH (12:00)
[2023-05-31] MEDS ORDERED: Ampicillin Sod/Sulbactam Sod 3 GM in NS 100 ML IV SCH (12:00)
[2023-05-31] MEDS ORDERED: OxyCODONE HCL 5 MG TAB PO PRN ×2 (13:20→19:45)
[2023-05-31] MEDS ORDERED: Mag Hydrox/Al Hydrox/Simeth 18 ML,Lidocaine 2% Viscous Soln 9 ML,Atropine/Scopalam/Hyos... PO PRN (13:30)
[2023-05-31 14:26] VITALS: BP 146/69
--- NOTE | 2023-05-31 16:25 | NUR ---
SHIFT SUMMARY: PATIENT A/OX4, CALM, PLEASANT AND COOPERATIVE c CARE. PATIENT DENIES CP/PRESSURE, N/V AND SOB. PATIENT REPORTS EPIGASTRIC DISCOMFORT. PATIENT HAD 4 BROWN, FORMED BM THIS SHIFT. PATIENT REPORTS PAIN 6-9/10 TO R HAND, MEDICATED c PRN PAIN MEDS PER EMAR c GOOD EFFECT. PATIENT RECEIVED IV/PO ABX AND SCHEDULED MEDS PER EMAR THIS SHIFT. PATIENT HAS BEEN AMBULATING TO BATHROOM AND HALLWAY c ASSISTANCE T/O SHIFT AND TOLERATED WELL. PATIENT HAS NO IV ACCESS PER ORDER. VITAL SIGNS REVIEWED. BED ALARM ON FOR SAFETY. CALL LIGHT IN REACH.
--- NOTE | 2023-05-31 18:34 | NUR ---
ADDITIONAL NOTE: DR. TOBIAS (ORTHO) DID DRESSING CHANGED TO R HAND THIS AM.
[2023-05-31 19:48] VITALS: BP 156/86
[2023-05-31] MEDS ORDERED: Trimethoprim/Sulfamethoxazole DS Tab PO SCH (21:00)
[2023-06-01 02:21] VITALS: BP 129/63
[2023-06-01] MEDS ORDERED: Diabetic GuaiFENesin 100 MG/5 ML 5MLUDC PO PRN (03:55)
--- NOTE | 2023-06-01 04:49 | NUR ---
PROGRESS NOTE. LATE ENTRY. PT COMPLAINING OF SOB AND MUCUS, DISCUSSED PT'S SX WITH RT. RT RECOMMENDED MUCINEX. NEW ORDERS RECEIVED FROM HOSPITALIST FOR MUCINEX. CHECKED ON PT TO NOTIFY OF NEW ORDERS. PT SLEEPING WITH EYES CLOSED AND CALL LIGHT IN REACH.
[2023-06-01 07:11] VITALS: BP 128/52
--- NOTE | 2023-06-01 07:49 | NUR ---
SHIFT SUMMARY NOC. PT A/O X4. RIGHT HAND DRESSING C/D/I. PT MEDICATED FOR PAIN PER EMAR ORDERS. PT VERBALIZED RELIEF. PT AMBULATES TO THE BR, IS VOIDING URINE AND TOLERATING PO INTAKE. PT DID CALL FOR RT FOR SOB X2, PT REPORTED RELIEF AFTER TX. PT RESTED WITH EYES CLOSED AND CALL LIGHT IN REACH.
[2023-06-01 08:42] LABS: BASOPHILS ABSOLUTE AUTO 0.03 K/mm3 (0.00-0.23); BASOPHILS PERCENT AUTO 0 % (0-2); EOSINOPHILS ABSOLUTE AUTO 0.05 K/mm3 (0.00-0.68); EOSINOPHILS PERCENT AUTO 0 % (0-6); Hematocrit 36.4 % (33.0-51.0); Hemoglobin 11.4 g/dL (11.5-16.0); IMMATURE GRAN ABSOLUTE AUTO 0.02 K/mm3 (0.00-0.10); IMMATURE GRAN PERCENT AUTO 0 % (0-1); LYMPHOCYTES ABSOLUTE AUTO 2.06 K/mm3 (0.84-5.20); LYMPHOCYTES PERCENT AUTO 17 % (21-46); MONOCYTES ABSOLUTE AUTO 0.92 K/mm3 (0.16-1.47); MONOCYTES PERCENT AUTO 8 % (4-13); Mean Corpuscular HGB 26.1 pg (26.0-34.0); Mean Corpuscular HGB Conc 31.3 g/dL (31.5-36.5); Mean Corpuscular Volume 83 fL (80-100); NEUTROPHILS ABSOLUTE AUTO 8.77 K/mm3 (1.96-9.15); NEUTROPHILS PERCENT AUTO 74 % (41-73); Platelet Count 216 K/mm3 (150-400); RDW Coefficient Variation 16.5 % (11.7-14.2); RDW Standard Deviation 49.8 fL (35.1-46.3); Red Blood Cell Count 4.37 M/mm3 (3.80-5.20); White Blood Cell Count 11.85 K/mm3 (4.00-11.30)
[2023-06-01] MEDS ORDERED: SULTRIDS PO (11:35)
--- NOTE | 2023-06-01 12:00 | NUR ---
DISCHARGE SUMMARY PT A&OX4, VSS/RA, MARTHA PO, VOIDING, AMB IND FWW/REPOSITION SELF, PAIN TREATED WITH OXY 5-10 Q4P. DC INS PROVIDED. PT REP UNDERSTANDING THOSE INSTRUCTIONS. LEFT FLOOR VIA WC WITH BUS AIDE TO GO HOME WITH , WITH ALL PERSONAL POSSESSIONS, INCLUDING DC PACKET AND 1 NARC SCRIPT; OTHER SCRIPTS FAXED TO [facility].
== END 2023-06-01 12:00 | disposition home or self-care (01) | DRG 906 ==
LOC: ORD 13:12 → ORSCMMR 13:16 → SURS 18:53 → ORD 19:44 → ICUE 19:45 → SURS 05-30 09:57 → ICUE 05-30 09:58 → SURS 05-30 16:15
PROVIDERS: Internal Medicine; Student in an Organized Health Care Education/Training Program; ADMIT Orthopaedic Surgery
PROC: 5A09357 Assistance with Respiratory Ventilation, Less than 24 Consecutive Hours, Continuous Positive Airway Pressure (ICD-10-PCS; 2023-05-29)
PROC: 0LD70ZZ Extraction of Right Hand Tendon, Open Approach (ICD-10-PCS; principal; 2023-05-29 15:00)
DX: T40.2X1A Poisoning by other opioids, accidental (unintentional), initial encounter (principal); G92.8 Other toxic encephalopathy; J69.0 Pneumonitis due to inhalation of food and vomit; J96.01 Acute respiratory failure with hypoxia; J96.02 Acute respiratory failure with hypercapnia; A43.8 Other forms of nocardiosis; E66.2 Morbid (severe) obesity with alveolar hypoventilation; I50.32 Chronic diastolic (congestive) heart failure; I96 Gangrene, not elsewhere classified; M65.141 Other infective (teno)synovitis, right hand; J44.9 Chronic obstructive pulmonary disease, unspecified; K21.9 Gastro-esophageal reflux disease without esophagitis; E78.5 Hyperlipidemia, unspecified; G25.81 Restless legs syndrome; N18.31 Chronic kidney disease, stage 3a; Z11.52 Encounter for screening for COVID-19; Z88.8 Allergy status to other drugs, medicaments and biological substances; Z87.891 Personal history of nicotine dependence; Z68.35 Body mass index [BMI] 35.0-35.9, adult
CPT/HCPCS: 0241U; 36415; 71045; 80048; 80053; 82803; 82947; 83735; 83880; 84443; 85025; 85651; 86140; 87070; 87071; 87075; 87102; 87205; 87206; 93005; 93010; 94640; 94660; 94664; 94760; 94762; 97110; 97116; 97162; 97165; 97530; 97535; A9270; J0456; J0690; J1170; J1650; J1885; J2250; J2310; J2543; J2704; J2765; J3010; J3370; J3480; J7050; J7120

== ENCOUNTER → 2023-08-27 | Outpatient (CLI) | payer BC | END | disposition home or self-care (01) | LOC: LAB SHORT 19:53 → LAB 19:53 | DX: T81.44XA Sepsis following a procedure, initial encounter (principal); M65.141 Other infective (teno)synovitis, right hand ==

== ENCOUNTER 2023-10-27 15:17 | Emergency (ER) | payer BC ==
[~2023-10-27] VITALS: Ht 160 cm; Wt 83.0 kg
[~2023-10-27 15:17] MED LIST changes: +ACET325 PO; +ATOR10 PO; +AZIT250 PO; +DULERA 200 MCG-13 GM INH; +DULO60 PO; +DYAZIDE 37.5-21 EACH PO; +Desyrel150 MG PO; +FLUTICASONE-SAL12 G2 INH; +NAPR500EC PO; +OXYC5 PO; +PRAM.125 PO; +PROBIOTIC1 EA14 PO; +SULTRIDS; +SULTRIDS PO; +VALA500; +Zocor20 MG PO
[2023-10-27 15:26] VITALS: BP 127/60
[2023-10-27] MEDS ORDERED: Diphth,Pertuss(Acell),Tet Vac 0.5 ML VIAL IM ONE (15:40)
[2023-10-27] MEDS ORDERED: Ketorolac Tromethamine 10 MG Tab PO ONE (15:45)
== END 2023-10-27 17:56 | disposition home or self-care (01) ==
LOC: ER 15:17
DX: S81.812A Laceration without foreign body, left lower leg, initial encounter (principal); K21.9 Gastro-esophageal reflux disease without esophagitis; E78.5 Hyperlipidemia, unspecified; J44.9 Chronic obstructive pulmonary disease, unspecified; I12.9 Hypertensive chronic kidney disease with stage 1 through stage 4 chronic kidney disease, or unspecified chronic kidney disease; N18.30 Chronic kidney disease, stage 3 unspecified; F17.200 Nicotine dependence, unspecified, uncomplicated; W26.9XXA Contact with unspecified sharp object(s), initial encounter; Z79.899 Other long term (current) drug therapy; Z88.8 Allergy status to other drugs, medicaments and biological substances
CPT/HCPCS: 12002; 90471; 90715; 99282-25; A9270

== ENCOUNTER 2023-12-17 03:57 | Day surgery (SDC) | payer BC ==
[2023-12-17] MEDS ORDERED: Lidocaine HCl 4% Cream 5 GM ONE (11:02)
== END 2023-12-17 22:38 | disposition home or self-care (01) ==
LOC: WOUND 03:57
DX: L97.822 Non-pressure chronic ulcer of other part of left lower leg with fat layer exposed (principal); I87.2 Venous insufficiency (chronic) (peripheral); I73.9 Peripheral vascular disease, unspecified
CPT/HCPCS: A6213; A9270

== ENCOUNTER 2023-12-24 02:38 | Day surgery (SDC) | payer BC, OTHER | END 2023-12-24 22:36 | disposition home or self-care (01) | LOC: WOUND 02:38 | DX: L97.822 Non-pressure chronic ulcer of other part of left lower leg with fat layer exposed (principal); I87.2 Venous insufficiency (chronic) (peripheral); I73.9 Peripheral vascular disease, unspecified | CPT/HCPCS: A6213; G0463 ==

== ENCOUNTER 2024-01-21 03:13 | Day surgery (SDC) | payer BC ==
[2024-01-21] MEDS ORDERED: Lidocaine HCl 4% Cream 5 GM ONE (07:55)
== END 2024-01-21 23:00 | disposition home or self-care (01) ==
LOC: WOUND 03:13
DX: L97.822 Non-pressure chronic ulcer of other part of left lower leg with fat layer exposed (principal); I87.2 Venous insufficiency (chronic) (peripheral); I73.9 Peripheral vascular disease, unspecified
CPT/HCPCS: A6213; A9270

== ENCOUNTER 2024-01-28 02:06 | Day surgery (SDC) | payer BC | END 2024-01-28 23:02 | disposition home or self-care (01) | LOC: WOUND 02:06 | DX: L97.822 Non-pressure chronic ulcer of other part of left lower leg with fat layer exposed (principal); I87.2 Venous insufficiency (chronic) (peripheral); I73.9 Peripheral vascular disease, unspecified | CPT/HCPCS: A6213; G0463 ==

== ENCOUNTER 2024-02-20 03:02 | Day surgery (SDC) | payer BC ==
[2024-02-20] MEDS ORDERED: Lidocaine HCl 4% Cream 5 GM ONE (14:20)
== END 2024-02-20 23:10 | disposition home or self-care (01) ==
LOC: WOUND 03:02
DX: L97.822 Non-pressure chronic ulcer of other part of left lower leg with fat layer exposed (principal); I87.2 Venous insufficiency (chronic) (peripheral); I73.9 Peripheral vascular disease, unspecified
CPT/HCPCS: A9270

== ENCOUNTER 2024-02-27 03:34 | Day surgery (SDC) | payer BC ==
[2024-02-27] MEDS ORDERED: Lidocaine HCl 4% Cream 5 GM ONE (11:59)
== END 2024-02-27 23:00 | disposition home or self-care (01) ==
LOC: WOUND 03:34
DX: L97.822 Non-pressure chronic ulcer of other part of left lower leg with fat layer exposed (principal); I87.2 Venous insufficiency (chronic) (peripheral); I73.9 Peripheral vascular disease, unspecified; J44.9 Chronic obstructive pulmonary disease, unspecified
CPT/HCPCS: A9270

== ENCOUNTER 2024-03-05 03:09 | Day surgery (SDC) | payer BC ==
[2024-03-05] MEDS ORDERED: Lidocaine HCl 4% Cream 5 GM ONE (12:23)
== END 2024-03-05 23:00 | disposition home or self-care (01) ==
LOC: WOUND 03:09
DX: L97.822 Non-pressure chronic ulcer of other part of left lower leg with fat layer exposed (principal); I87.2 Venous insufficiency (chronic) (peripheral); I73.9 Peripheral vascular disease, unspecified; J44.9 Chronic obstructive pulmonary disease, unspecified
CPT/HCPCS: A9270

== ENCOUNTER 2024-03-12 04:27 | Day surgery (SDC) | payer BC | END 2024-03-12 23:23 | disposition home or self-care (01) | LOC: WOUND 04:27 | DX: L97.821 Non-pressure chronic ulcer of other part of left lower leg limited to breakdown of skin (principal); I87.2 Venous insufficiency (chronic) (peripheral); I73.9 Peripheral vascular disease, unspecified | CPT/HCPCS: G0463 ==

== ENCOUNTER 2024-04-06 04:33 | Emergency (ER) | payer BC ==
[~2024-04-06] VITALS: Ht 162.6 cm; Wt 86.2 kg
[2024-04-06] MEDS ORDERED: OxyCODONE HCL 5 MG TAB PO ONE (06:15)
[2024-04-06] MEDS ORDERED: IBUP600 PO (07:36)
[2024-04-06 07:52] VITALS: BP 132/56
== END 2024-04-06 07:54 | disposition home or self-care (01) ==
LOC: ER 04:33
DX: M25.511 Pain in right shoulder (principal); I12.9 Hypertensive chronic kidney disease with stage 1 through stage 4 chronic kidney disease, or unspecified chronic kidney disease; N18.30 Chronic kidney disease, stage 3 unspecified; K21.9 Gastro-esophageal reflux disease without esophagitis; E78.5 Hyperlipidemia, unspecified; J44.9 Chronic obstructive pulmonary disease, unspecified; F17.200 Nicotine dependence, unspecified, uncomplicated; Z88.8 Allergy status to other drugs, medicaments and biological substances; Z79.899 Other long term (current) drug therapy; Z79.890 Hormone replacement therapy
CPT/HCPCS: 99283; A9270

== ENCOUNTER 2024-05-04 11:15 | Day surgery (SDC) | payer BC ==
[~2024-05-04] VITALS: Ht 160 cm; Wt 88.8 kg
[~2024-05-04 11:15] MED LIST changes: +IBUP600 PO; +Lactated Ringer's 1,000 ML IV ONE; +Lidocaine 2% 5 ML SDV ONE; +Lidocaine 2%-Epineph 1:100000 20 ML MDV ONE
[2024-05-04] MEDS ORDERED: CeFAZolin Sodium 2,000 MG VIAL ONE (11:46)
[2024-05-04] MEDS ORDERED: Ipratropium/Albuterol SulF 2.5-0.5MG/3 ML Amp ONE (12:03)
[2024-05-04] MEDS ORDERED: CELE100 PO (12:14)
[2024-05-04] MEDS ORDERED: TIZANIDINE HCL213 PO (12:14)
[2024-05-04] MEDS ORDERED: Lactated Ringer's 1,000 ML IV ONE (12:24)
[2024-05-04] MEDS ORDERED: propofoL 20 ML IV ONE (12:44)
[2024-05-04] MEDS ORDERED: FentaNYL Citrate 50 MCG/ML 2 ML Injection ONE ×2 (12:54→13:44)
[2024-05-04] MEDS ORDERED: Dexamethasone Sod Phos 10 MG/ML 1ML VIAL ONE (13:15)
[2024-05-04] MEDS ORDERED: Ondansetron HCl 2 MG / ML 2ML Vial ONE (13:17)
[2024-05-04] MEDS ORDERED: Ketorolac Tromethamine 30mg Vial ONE (13:20)
[2024-05-04 14:20] VITALS: BP 128/53
--- NOTE | 2024-05-04 14:26 | NUR ---
05/04/24 1426 Debra Quinonez PT FROM OR ON 8 L O2 BY NRB, D/C'D AT 1345. SATS REMAINING ABOVE 95%
== END 2024-05-04 16:20 | disposition home or self-care (01) ==
LOC: ORSCSDS 11:15
PROVIDERS: Orthopaedic Surgery
PROC: 0RSW0ZZ Reposition Right Finger Phalangeal Joint, Open Approach (ICD-10-PCS; principal; 2024-05-04 13:45)
PROC: 0LN70ZZ Release Right Hand Tendon, Open Approach (ICD-10-PCS; principal; 2024-05-04 13:45)
DX: L91.0 Hypertrophic scar (principal); J44.89 Other specified chronic obstructive pulmonary disease; E03.9 Hypothyroidism, unspecified; K21.9 Gastro-esophageal reflux disease without esophagitis; Z79.899 Other long term (current) drug therapy
CPT/HCPCS: 82947; 87070; 87075; 87102; 87205; J0690; J1100; J1885; J2405; J2704; J3010; J7120

== ENCOUNTER 2024-05-17 19:58 | Emergency (ER) | payer BC ==
[~2024-05-17] VITALS: Ht 160 cm; Wt 88.5 kg
[~2024-05-17 19:58] MED LIST changes: +CELE100 PO; -Lactated Ringer's 1,000 ML IV ONE; -Lidocaine 2% 5 ML SDV ONE; -Lidocaine 2%-Epineph 1:100000 20 ML MDV ONE; +TIZANIDINE HCL213 PO
[2024-05-17 20:17] VITALS: BP 149/55
== END 2024-05-17 22:23 | disposition left against medical advice (07) ==
LOC: ER 19:58
DX: R22.43 Localized swelling, mass and lump, lower limb, bilateral (principal); Z53.21 Procedure and treatment not carried out due to patient leaving prior to being seen by health care provider
CPT/HCPCS: 99281

== ENCOUNTER 2024-06-28 04:29 | Emergency (ER) | payer BC ==
[~2024-06-28] VITALS: Ht 160 cm; Wt 83.9 kg
[2024-06-28] MEDS ORDERED: HYDROmorphone HCl/Pf 1MG SYR IV ONE ×2 (04:40→07:45)
[2024-06-28] MEDS ORDERED: Ketorolac Tromethamine 30mg Vial IV ONE (04:40)
[2024-06-28 04:52] LABS: BASOPHILS ABSOLUTE AUTO 0.03 K/mm3 (0.00-0.23); BASOPHILS PERCENT AUTO 0 % (0-2); EOSINOPHILS ABSOLUTE AUTO 0.17 K/mm3 (0.00-0.68); EOSINOPHILS PERCENT AUTO 1 % (0-6); IMMATURE GRAN ABSOLUTE AUTO 0.07 K/mm3 (0.00-0.10); IMMATURE GRAN PERCENT AUTO 1 % (0-1); LYMPHOCYTES ABSOLUTE AUTO 1.32 K/mm3 (0.84-5.20); LYMPHOCYTES PERCENT AUTO 10 % (21-46); MONOCYTES ABSOLUTE AUTO 0.82 K/mm3 (0.16-1.47); MONOCYTES PERCENT AUTO 6 % (4-13); Mean Corpuscular HGB Conc 32.1 g/dL (31.5-36.5); Mean Corpuscular Volume 84 fL (80-100); Mean Platelet Volume 9.7 fL (9.1-12.4); NEUTROPHILS ABSOLUTE AUTO 10.97 K/mm3 (1.96-9.15); NEUTROPHILS PERCENT AUTO 82 % (41-73); Platelet Count 447 K/mm3 (150-400); RDW Coefficient Variation 15.1 % (11.7-14.2); Red Blood Cell Count 3.33 M/mm3 (3.80-5.20); White Blood Cell Count 13.38 K/mm3 (4.00-11.30)
[2024-06-28 05:14] LABS: C-REACTIVE PROTEIN, EXT RANGE 17.2 mg/dL (0.000-0.300)
[2024-06-28 05:17] LABS: Albumin, Blood 2.3 g/dL (3.4-5.0); Albumin/Globulin Ratio 0.6 (0.8-1.8); Bilirubin, Total 0.4 mg/dL (0.1-1.0); Bun/Creatinine Ratio 19.3 (12.0-20.0); Calcium, Blood 8.8 mg/dL (8.5-10.1); Creatinine, Blood 0.99 mg/dL (0.40-1.00); Globulin, Blood 4.1 g/dL (2.2-4.0); Potassium, Blood 3.5 mmol/L (3.5-5.5); Total Protein, Blood 6.4 g/dL (6.4-8.2)
[2024-06-28] MEDS ORDERED: NS 1,000 ML IV SCH (05:30)
[2024-06-28] MEDS ORDERED: Ondansetron HCl 2 MG / ML 2ML Vial IV ONE (07:55)
[2024-06-28 08:30] VITALS: BP 134/68
[2024-06-28] MEDS ORDERED: Ondansetron 4 MG SoluTab SL ONE (08:30)
[2024-06-28] MEDS ORDERED: HYDR1TAB94 PO (08:33)
[2024-06-28] MEDS ORDERED: ONDA4ODT MM (08:44)
== END 2024-06-28 08:57 | disposition home or self-care (01) ==
LOC: ER 04:29
PROVIDERS: Student in an Organized Health Care Education/Training Program
DX: G89.28 Other chronic postprocedural pain (principal); M54.50 Low back pain, unspecified; Z98.890 Other specified postprocedural states; F17.200 Nicotine dependence, unspecified, uncomplicated; E78.5 Hyperlipidemia, unspecified; K21.9 Gastro-esophageal reflux disease without esophagitis; J44.9 Chronic obstructive pulmonary disease, unspecified; I12.9 Hypertensive chronic kidney disease with stage 1 through stage 4 chronic kidney disease, or unspecified chronic kidney disease; N18.30 Chronic kidney disease, stage 3 unspecified; Z79.899 Other long term (current) drug therapy; Z79.83 Long term (current) use of bisphosphonates; Z79.02 Long term (current) use of antithrombotics/antiplatelets; Z79.890 Hormone replacement therapy; Z79.1 Long term (current) use of non-steroidal anti-inflammatories (NSAID); Z79.51 Long term (current) use of inhaled steroids; Z79.2 Long term (current) use of antibiotics
CPT/HCPCS: 72129; 72132; 80053; 85025; 85651; 86140; 96374-59; 96375; 96376; 99284-25; A9270; J1171; J1885; J2405; J7030; Q9967

== ENCOUNTER → 2025-01-09 | Outpatient (CLI) | payer BC | LOC: LAB 13:00 → LAB SHORT 13:00 | DX: J44.1 Chronic obstructive pulmonary disease with (acute) exacerbation (principal) | CPT/HCPCS: 87070; 87077; 87186; 87205 ==

== ENCOUNTER 2025-01-14 19:03 | Emergency (ER) | payer MEDICARE, BC ==
[~2025-01-14] VITALS: Ht 160 cm; Wt 78.5 kg
[2025-01-14] MEDS ORDERED: HYDROcodone 5-APAP 325 TAB PO ONE (20:30)
[2025-01-14 21:45] VITALS: BP 154/91
== END 2025-01-14 21:44 | disposition home or self-care (01) ==
LOC: ER 19:03
DX: S89.92XA Unspecified injury of left lower leg, initial encounter (principal); K21.9 Gastro-esophageal reflux disease without esophagitis; E78.5 Hyperlipidemia, unspecified; I12.9 Hypertensive chronic kidney disease with stage 1 through stage 4 chronic kidney disease, or unspecified chronic kidney disease; N18.30 Chronic kidney disease, stage 3 unspecified; Z79.899 Other long term (current) drug therapy; Z79.2 Long term (current) use of antibiotics; X50.1XXA Overexertion from prolonged static or awkward postures, initial encounter
CPT/HCPCS: 73562-LT; 99284-25; A6590; A9270